=== PATIENT | male | born 1980 | race Two or more races ===

== ENCOUNTER 2024-08-05 13:55 | Emergency (ER) | payer SELFPAY ==
[~2024-08-05] VITALS: Ht 195.6 cm; Wt 129.8 kg
--- NOTE | 2024-08-05 14:05 | ED.PDOC ---
Eye-HPI HPI Comments 43 y.o male presents to the ED for a chief complaint of right eye pain x 5 days. Patient was hanging up [place] lights, arlin speckles fell into his right eye causing irritation. Patient was seen at Dr. Maddox's then, was given medication (erythromycin ointment) but states no pain relief. He denies any blurred vision, redness, discharge. No medical, surgical history reported. Time Seen by MD: 14:00 Reviewed Notes: Nurses Notes, Medications, Allergies Allergies: Coded Allergies: Iodine (Verified Allergy, Intermediate, 08/05/24) Information Source: Patient Mode of Arrival: Ambulatory Timing: Days (5) Quality: Pain Eye Location: Right Past Medical History PAST MEDICAL HISTORY: Denies Surgical History: Denies all surgeries Family History Family History: Reviewed,noncontributory to illness Social History Smoker: Non-Smoker Alcohol: Denies ETOH Use Drugs: Denies Drug Use Lives In: Home Constitutional: denies: chills, diaphoresis, fatigue, fever, malaise, sweats, weakness, others EENTM: reports: eye pain; denies: blurred vision, double vision, ear bleeding, ear discharge, ear drainage, ear pain, ear ringing, eye redness, hearing loss, mouth pain, mouth swelling, nasal discharge, nose bleeding, nose congestion, nose pain, photophobia, tearing, throat pain, throat swelling, voice changes, others Respiratory: denies: cough, hemoptysis, orthopnea, SOB at rest, shortness of breath, SOB with excertion, stridor, wheezing, others Cardiovascular: denies: chest pain, dizzy spells, diaphoresis, Dyspnea on exertion, edema, irregular heart beat, left arm pain, lightheadedness, palpitations, PND, syncope, others Gastrointestinal: denies: abdomen distended, abdominal pain, blood streaked bowels, constipated, diarrhea, dysphagia, difficulty swallowing, hematemesis, melena, nausea, poor appetite, poor fluid intake, rectal bleeding, rectal pain, vomiting, others Genitourinary: denies: burning, dysuria, flank pain, frequency, hematuria, incontinence, penile discharge, penile sore, pain, testicle pain, testicle swelling, urgency, others Neurological: denies: dizziness, fainting, headache, left sided numbness, left sided weakness, numbness, paresthesia, pre-existing deficit, right sided numbness, right sided weakness, seizure, speech problems, tingling, tremors, weakness, others Musculoskeletal: denies: back pain, gout, joint pain, joint swelling, muscle pain, muscle stiffness, neck pain, others Integumetry: denies: bruises, change in color, change in hair/nails, dryness, laceration, lesions, lumps, rash, wounds, others Allergic/Immunocompromised: denies: Difficulty Healing, Frequent Infections, Hives, Itching, others Hematologic/Lymphatic: denies: anemia, blood clots, easy bleeding, easy bruising, swollen glands, others Endocrine: denies: excessive hunger, excessive sweating, excessive thirst, excessive urination, flushing, intolerance to cold, intolerance to heat, unexplained weight gain, unexplained weight loss, others Psychiatric: denies: anxiety, bipolar disorder, depression, hopeless, panic disorder, schizophrenia, sleepless, suicidal, others Physical Exam General Appearance: No Apparent Distress, Normal HEENT: Normal ENT Inspection, Pharynx Normal, TMs Normal Neck: Full Range of Motion, Non-Tender, Normal, Normal Inspection Respiratory: Chest Non-Tender, Lungs Clear, No Accessory Muscle Use, No Respiratory Distress, Normal Breath Sounds Cardiovascular: No Edema, No JVD, No Murmur, No Gallop, Normal Peripheral Pulses, Regular Rate/Rhythm Breast Exam: Deferred Gastrointestinal: No Organomegaly, Non Tender, No Pulsatile Mass, Normal Bowel Sounds, Soft Genitalia: Deferred Pelvic: Deferred Rectal: Deferred Extremities: No calf tenderness, Normal capillary refill, Normal inspection, Normal range of motion, Non-tender, No pedal edema Musculoskeletal : Apperance: Normal Neurologic: Alert, death claim examiner II-XII nml as Tested, No Motor Deficits, Normal Affect, Normal Mood, No Sensory Deficits Cerebellar Function: Normal Reflexes: Normal Skin: Dry, Normal Color, Warm Lymphatic: No Adenopathy Was a procedure done? Was a procedure done?: Yes Sedation Sedation?: No Informed consent obtained: Yes Other Procedure Procedure tetracaine was applied to right eye, fluorescein stain was applied. a sub-mm tiny uptake is at the 6'o clock position. however, i cannot see any FB. pt tolerated procedure well, without problems EENT DIFF Eye: Chalazion, Conjunctivitis, Allergic, Bacterial, Corneal Abrasion, Corneal Lacerations, Corneal Ulceration, Foreign Body-Conjunctiva, Foreign Body-Corneal, Foreign Body-Intraocular, Foreign Body-Lid, Iritis/Uveitis X-Ray, Labs, Meds, VS Vital Signs Date Time Temp Pulse Resp B/P (MAP) Pulse Ox O2 Delivery O2 Flow Rate FiO2 08/05/24 14:03 98.0 115 18 166/98 (120) 98 Time of 1ST Reevaluation: 14:01 Reevaluation 1ST: Unchanged Time of 2ND Reevaluation: 17:12 Reevaluation 2ND: Improved Patient Education/Counseling: Diagnosis, Treatment Family Education/Counseling: No Family Present Additional Information Ordered Test: PHA Discuss tx/ results: Patient and medical personnel i did see a very small stain uptake, but without obvious FB. pt will follow up with ophthalmology Departure 1 Departure Time of Disposition: 17:12 Impression: Primary Impression: Corneal abrasion Qualified Codes: S05.01XA - Injury of conjunctiva and corneal abrasion without foreign body, right eye, initial encounter Disposition: 01 HOME / SELF CARE / HOMELESS Condition: Good Additional Instructions: follow up with ophthalmology in AM Discharged With: Self Critical Care Note Critical Care Time?: No Stability Stability form required: No I personally scribed for ADMION COOK MD ([email or web address]) on 08/05/24 at 14:05. Electronically submitted by Maira Cole ([facility]). DAMION COOK MD Aug 05, 2024 14:05
[2024-08-05] MEDS: TETRACAINE HCL 0.5% OPTH(EYE) SOLN 4ML RIGHTEYE ONE (14:28)
[2024-08-05] MEDS: FLUORESCEIN SOD OPTH TEST STRIP RIGHTEYE ONE (14:28)
[2024-08-05] MEDS: GENTAMICIN SULF 0.3% OPTH(EYE) OINT 3.5GM RIGHTEYE ONE (14:45)
[2024-08-05 17:15] VITALS: BP 145/95; PULSE 104; RESP 19; TEMP 98.7; O2SAT 97
== END 2024-08-05 17:19 | disposition home or self-care (01) ==
LOC: ER 13:55
DX: S05.01XA Injury of conjunctiva and corneal abrasion without foreign body, right eye, initial encounter (principal); Z88.8 Allergy status to other drugs, medicaments and biological substances; X58.XXXA Exposure to other specified factors, initial encounter; Y93.89 Activity, other specified; Y92.89 Other specified places as the place of occurrence of the external cause; Y99.8 Other external cause status